=== PATIENT | female | born 1955 | race Caucasian/White ===

== ENCOUNTER → 2022-12-08 | Outpatient (CLI) | payer MEDICARE, SELFPAY ==
[2022-12-08 16:16] LABS: Absolute Lymphocyte Count 1.47 X10^3/uL (0.83-4.51); Absolute Neutrophil Count 4.4 X10^3/uL (2.0-7.7); Basophil# 0.03 X10^3/uL; Basophil% 0.5 % (0-1); Eosinophil# 0.15 X10^3/uL; Eosinophils% 2.3 % (0-5); Hematocrit 40.4 % (37-47); Hemoglobin 13.7 g/dL (12.0-15.0); Lymphocyte # 1.47 X10^3/ul (0.83-4.51); Lymphocyte % 22.9 % (19-41); Mean Corp Hgb Conc 33.9 g/dL (32-36); Mean Corpuscular Hgb 29.7 pg (27.0-32.0); Mean Corpuscular Volume 87.6 fL (81-99); Mean Platelet Vol. 9.8 fl (6.2-12.0); Monocyte# 0.41 X10^3/uL; Monocyte% 6.4 % (0-10); NRBC Flagged by Analyzer 0 % (0-5); Neutrophil # 4.35 X10^3/uL (2.7-7.7); Neutrophil % 67.6 % (47-70); Platelet Count 316 K/mm3 (150-450); RBC Distribution Width CV 13.3 % (11.6-14.6); RBC Distribution Width SD 42.5 fl (35.1-43.9); Red Blood Count 4.61 M/mm3 (4.2-5.4); White Blood Count 6.4 K/mm3 (4.4-11.0)
[2022-12-08 16:36] LABS: Hemoglobin A1c 5.5 % (3.8-5.6)
[2022-12-08 16:43] LABS: Progesterone Level 0.32 ng/mL (See Comment); Vitamin B12 1095 pg/mL (211-911); Vitamin D,25 Hydroxy 44.7 ng/mL
[2022-12-08 17:34] LABS: ALB/GLOB Ratio 1.2 RATIO (0.9-2.4); AST(SGOT) 20 U/L (15-37); Alanine Aminotransfer ALT/SGPT 27 U/L (13-56); Albumin, Serum 4.2 g/dL (3.2-5.0); Alkaline Phosphatase 59 U/L (45-117); Anion Gap 6 (5-15); BUN 17 mg/dL (7-18); BUN/Creat Ratio 18.6 RATIO (10-20); Calcium,Total 9.7 mg/dL (8.5-10.1); Chloride 103 mmol/L (98-107); Cholesterol 284 mg/dL (200); Creatinine, Serum 0.92 mg/dL (0.55-1.02); EST Glomerular Filtration Rate 65 mL/min (>60); Est Glom Filt Rate - Afr Amer 78 mL/min (>60); Estradiol 18.8 pg/mL; Globulin 3.5 g/dL (2.2-4.2); Glucose 83 mg/dL (74-106); High Density Lipoprotein 80 mg/dL; Magnesium 2.2 mg/dL (1.6-2.6); Potassium 4.4 mmol/L (3.5-5.1); Protein, Total 7.7 g/dL (6.4-8.2); Sodium Level 137 mmol/L (136-145); T4 Free Direct 0.93 ng/dL (0.76-1.46); Thyroid Stim Hormone (TSH) 1.83 uIU/mL (0.358-3.74); Triglycerides 283 mg/dL; Very Low Density Lipoprotein 57 mg/dL (5-40)
[2022-12-10 16:09] LABS: DHEA Sulfate 77.2 ug/dL (20.4-186.6); Thyroglobulin Antibody < 1.0 IU/mL (0.0-0.9); Thyroid Peroxidase AB < 9 IU/mL (0-34)
== END | disposition home or self-care (01) ==
LOC: LABSPEC 15:33
PROVIDERS: Referring Provider Nurse Practitioner Family; Visit Provider Nurse Practitioner Family
DX: R53.83 Other fatigue (principal); F32.A Depression, unspecified; M79.18 Myalgia, other site; E28.39 Other primary ovarian failure; R23.2 Flushing; G47.00 Insomnia, unspecified; R61 Generalized hyperhidrosis
CPT/HCPCS: 80053; 80061; 82306; 82607; 82627; 82670; 83036; 83735; 84144; 84403; 84439; 84443; 85025; 86376; 86695; 86696; 86800; 82626

== ENCOUNTER → 2023-09-20 | Outpatient (CLI) | payer MEDICARE, SELFPAY ==
[2023-09-20 15:21] LABS: Absolute Lymphocyte Count 1.81 X10^3/uL (0.83-4.51); Absolute Neutrophil Count 4.3 X10^3/uL (2.0-7.7); Basophil# 0.05 X10^3/uL; Basophil% 0.8 % (0-1); Eosinophil# 0.09 X10^3/uL; Eosinophils% 1.4 % (0-5); Hematocrit 41.7 % (37-47); Lymphocyte # 1.81 X10^3/ul (0.83-4.51); Lymphocyte % 27.5 % (19-41); Mean Corp Hgb Conc 33.6 g/dL (32-36); Mean Corpuscular Hgb 29.4 pg (27.0-32.0); Mean Corpuscular Volume 87.6 fL (81-99); Mean Platelet Vol. 9.2 fl (6.2-12.0); Monocyte# 0.35 X10^3/uL; Monocyte% 5.3 % (0-10); NRBC Flagged by Analyzer 0 % (0-5); Neutrophil # 4.27 X10^3/uL (2.7-7.7); Neutrophil % 64.7 % (47-70); Platelet Count 358 K/mm3 (150-450); RBC Distribution Width CV 13.2 % (11.6-14.6); RBC Distribution Width SD 42.6 fl (35.1-43.9); Red Blood Count 4.76 M/mm3 (4.2-5.4); White Blood Count 6.6 K/mm3 (4.4-11.0)
[2023-09-20 16:20] LABS: ALB/GLOB Ratio 1.1 RATIO (0.9-2.4); AST(SGOT) 21 U/L (15-37); Alanine Aminotransfer ALT/SGPT 23 U/L (13-56); Albumin, Serum 3.9 g/dL (3.2-5.0); Alkaline Phosphatase 58 U/L (45-117); Anion Gap 7 (5-15); BUN 19 mg/dL (7-18); BUN/Creat Ratio 20.4 RATIO (10-20); Calcium,Total 9.6 mg/dL (8.5-10.1); Chloride 105 mmol/L (98-107); Cholesterol 260 mg/dL (200); Creatinine, Serum 0.93 mg/dL (0.55-1.02); EST Glomerular Filtration Rate 63 mL/min (>60); Est Glom Filt Rate - Afr Amer 77 mL/min (>60); Globulin 3.6 g/dL (2.2-4.2); Glucose 120 mg/dL (74-106); High Density Lipoprotein 81 mg/dL; Magnesium 2.1 mg/dL (1.6-2.6); Protein, Total 7.5 g/dL (6.4-8.2); Sodium Level 137 mmol/L (136-145); Triglycerides 178 mg/dL; Very Low Density Lipoprotein 36 mg/dL (5-40)
[2023-09-20 16:35] LABS: Vitamin D,25 Hydroxy 63.1 ng/mL
[2023-09-20 17:54] LABS: Hemoglobin A1c 5.2 % (3.8-5.6)
[2023-09-22 06:10] LABS: HSV 2 IgG 4.19 index (0.00-0.90)
== END | disposition home or self-care (01) ==
PROVIDERS: Visit Provider Nurse Practitioner Family
DX: R53.82 Chronic fatigue, unspecified (principal); F32.A Depression, unspecified; M79.18 Myalgia, other site; E28.39 Other primary ovarian failure; G47.00 Insomnia, unspecified; R61 Generalized hyperhidrosis; R23.2 Flushing
CPT/HCPCS: 36415; 80053; 80061; 82306; 83036; 83735; 85025; 86695; 86696

== ENCOUNTER 2023-10-03 13:51 | Emergency (ER) | payer MEDICARE, SELFPAY ==
[2023-10-03 13:52] VITALS: BP 168/122; PULSE 89; RESP 18; TEMP 36.4; O2SAT 99; BMI 24.1
--- NOTE | 2023-10-03 14:46 | EKG12_ITS ---
Test Reason : HTN Blood Pressure : / mmHG Vent. Rate : 078 BPM Atrial Rate : 078 BPM P-R Int : 154 ms QRS Dur : 084 ms QT Int : 366 ms P-R-T Axes : 032 -11 -24 degrees QTc Int : 417 ms Normal sinus rhythm Possible Left atrial enlargement Minimal voltage criteria for LVH, may be normal variant ( R in aVL ) Non-specific ST & T wave changes Abnormal ECG Confirmed by Chase Young ([id number]), editor greeting card BERNADETTE PANIAGUA ([id number]) on 10/04/2023 10:02:30 AM Referred By: Confirmed By:Chase Young
--- NOTE | 2023-10-03 14:46 | CT_ITS ---
INDICATION: headaches, HTN EXAMINATION: CT BRAIN - CT Head or Brain W/O Contrast Injection TECHNIQUE: Multiple axial images were obtained of the head without intravenous contrast. A radiation dose optimization technique was used for this scan. IV Contrast dosage and agent: None. COMPARISON: None. FINDINGS: BRAIN PARENCHYMA: No intra- or extra-axial hemorrhage. No evidence of acute infarct. No intracranial mass or mass effect. Mild volume loss with low attenuation of the periventricular white matter typical of chronic small vessel disease. Posterior fossa structures are unremarkable. CSF SPACES: Appropriate for age. No hydrocephalus. Basal cisterns are patent. CALVARIUM, SKULL BASE, PARANASAL SINUSES AND MASTOID AIR CELLS: Clear. No discrete lytic or blastic abnormalities. ORBITS: Both globes, extraocular muscles, optic nerves and retrobulbar fat appear unremarkable. CT/Brain/Head without Contrast IMPRESSION: Mild senescent change. No acute intracranial findings. Electronically Signed: Jalen Hernández MD at 16:30 EDT ,
--- NOTE | 2023-10-03 14:50 | EDS_ITS ---
HPI History of Present Illness Chief Complaint: Hypertension Informant: patient Narrative Narrative: Patient presents due to concern for hypertension. She is been checking her blood pressures at home over the last 3 to 4 days and noted them to be elevated. She does not have a known history of hypertension. Last time it was checked at a doctor's office was early July and at that time her systolic pressure was 118. She does note that she has been having frequent headaches for the past couple of months. She went to urgent care today and was sent to the emergency room. She does not have a primary care physician at this time. PFSH PFSH Home Medications amlodipine 5 mg tablet (Norvasc) 5 mg PO DAILY #30 tabs 10/03/23 [Rx Last Taken Unknown] Allergy/AdvReac Type Severity Reaction Status Date / Time azithromycin [From Zithromax] Allergy Mild Nausea Verified 10/03/23 13:55 cephalexin Allergy Mild Nausea/Vom/ Verified 10/03/23 13:55 Diarrhea Social History Smoking Status: Never smoker ROS ROS ED Constitutional Constitutional ED: Denies chills or fever(s) Eyes Eyes: Denies change in vision or discharge from eye(s) ENT ENT ED: Denies discharge from eye(s), rhinorrhea or sore throat Cardiovascular Cardiovascular: Denies chest pain or palpitations Respiratory/Chest Respiratory/Chest: Denies cough or dyspnea Gastrointestinal Gastrointestinal: Denies abdominal pain, nausea or vomiting Genitourinary Genitourinary ED: Denies dysuria Musculoskeletal Musculoskeletal: Denies back pain or extremity pain Integumentary Denies Abrasions or rash Neurologic Neurologic: Reports headache(s); Denies weakness Psychiatric Psychiatric: Denies anxiety or depression Allergic/Immunologic Allergic/Immunologic ED: Denies lip swelling or urticaria EXAM Physical Exam Const Vital Signs: 10/03/23 13:52 10/03/23 15:08 10/03/23 15:52 Temperature 97.6 F L Temperature Source Temporal Pulse Rate 89 73 Respiratory Rate 18 18 Respiratory Effort Normal Respiratory Pattern Normal Blood Pressure 168/122 H 178/113 H Blood Pressure Mean 137 134 Pulse Ox 99 99 Oxygen Delivery Method Room Air Room Air 10/03/23 16:58 Temperature Temperature Source Pulse Rate 72 Respiratory Rate 11 L Respiratory Effort Respiratory Pattern Blood Pressure 154/103 H Blood Pressure Mean 120 Pulse Ox 98 Oxygen Delivery Method Room Air Positive well nourished and well developed General Appearance ED: well developed HEENT Reports moist mucous membranes Eyes EOMs intact bilaterally Chest Wall inspection of chest normal and palpation of chest normal Resp normal respiratory effort and clear to auscultation bilaterally Cardio regular rate and regular rhythm GI non-tender Palpation: soft Extremity normal to inspection Neuro oriented x3 and no sensory deficits noted Psych mental status grossly normal Skin no rashes or lesions noted MDM MDM MDM Narrative Medical decision making narrative: 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 IV line initiated. Labwork obtained to evaluate for leukocytosis, anemia, and electrolyte derangement. Urinalysis obtained to evaluate for infection/hematuria. Given her frequency of headaches and hypertension CT scan of the head will be obtained to evaluate for any intracranial abnormality including bleed. Two-view chest x-ray will be obtained to evaluate cardiac size. History & Record Review Discussion w/independent historian: Patient Additional record(s) reviewed:: Prior labs Lab Data Attestation: I reviewed the patient's lab results. Labs: Laboratory Results - last 24 hr 10/03/23 10/03/23 15:00 15:52 WBC 7.0 RBC 5.04 Hgb 14.8 Hct 43.9 MCV 87.1 MCH 29.4 MCHC 33.7 RDW Std Deviation 41.5 RDW Coeff of Mary 13.0 Plt Count 360 MPV 8.9 Immature Gran % (Auto) 0.300 Neut % (Auto) 70.3 H Lymph % (Auto) 22.8 [place] % (Auto) 5.3 Eos % (Auto) 0.9 Baso % (Auto) 0.4 Absolute Neuts (auto) 4.9 Absolute Lymphs (auto) 1.60 Nucleated RBC % 0 Sodium 138 Potassium 4.1 Chloride 102 Carbon Dioxide 30.0 Anion Gap 6 BUN 14 Creatinine 0.81 Estim Creat Clear Calc 58.98 Est GFR (MDRD) Af Amer 90 Est GFR (MDRD) Non-Af 74 BUN/Creatinine Ratio 17.2 Glucose 86 Calcium 10.3 H Urine Color Yellow Urine Clarity Clear Urine pH 7.0 Ur Specific [place] 1.010 Urine Protein Negative Urine Glucose (UA) Normal Urine Ketones Negative Urine Occult Blood Negative Urine Nitrite Negative Urine Bilirubin Negative Urine Urobilinogen Normal Ur Leukocyte Esterase 25 H Urine RBC 0 SEEN Urine WBC 0 SEEN Ur Squamous Epith Cells 0 SEEN Urine Bacteria 0 SEEN Urine Mucus 0 SEEN Radiography Chest X-Ray - ED: 2 View, Read by ED Physician, Normal, Heart, Lungs and Mediastinum Diagnostic Testing: Clinical Impression(s) from Imaging Studies Brain CT 10/03/23 14:46 IMPRESSION: Mild senescent change. No acute intracranial findings. Electronically Signed: Jalen Hernández MD at 16:30 EDT , Chest X-Ray 10/03/23 15:20 IMPRESSION: No radiographic evidence of acute cardiopulmonary disease. Electronically Signed: Jalen Hernández MD at 16:33 EDT , EKG Initial EKG: Attestation: I personally reviewed and interpreted this EKG as follows: Interpretation: Sinus Rhythm (Sinus at 78 with no acute ischemia. Nonspecific 1/[address] depression in the lateral precordial leads.) Treatment and Re-Evaluation :: CBC was a white count of 7 with a hemoglobin of 14.8. Normal differential. Chemistry studies unremarkable with normal renal function. Glucose is 86. Calcium is slightly high at 10.3. Urinalysis reveals no protein and no evidence of infection. EKG is sinus rhythm with no evidence of LVH. 2 view chest x-ray per my interpretation is unremarkable with normal cardiac silhouette. Radiology interpretation reviewed and agrees. CT scan of the head reveals no acute findings. Patient's blood pressure remained elevated while we were observing her. She was given a dose of 10 mg of labetalol. Pressure came down to 154/103, but final reexam systolic pressure is back up to 162. I discussed with the patient star ting her on daily Norvasc for blood pressure control. She will check her blood pressure each morning and if her systolic pressure is greater than 160 she is to take her medication. I asked her to keep a detailed journal of her blood pressure readings, when she takes her medication, and her symptoms. She would like to establish care with Dr. Scott Toscano at [facility]. Patient be given return instructions. Discharge Plan Triage Chief Complaint: Hypertension ED Provider: Marilia Stratton Dx/Rx/DC Orders Clinical Impression: Hypertension Instructions: ED Hypertension New Begin Treatment Prescriptions: New amlodipine [Norvasc] 5 mg tablet 5 mg PO DAILY Qty: 30 0RF Primary Care Provider: Pooja Pineda NP Referrals: Josias Toscano DO [Med Staff - Dental Surgeon] - As soon as possible Pooja Pineda [employer], [employer] [Primary Care Provider] - Disposition Disposition: Home, Self Care
[2023-10-03 15:11] LABS: Absolute Neutrophil Count 4.9 X10^3/uL (2.0-7.7); Basophil# 0.03 X10^3/uL; Basophil% 0.4 % (0-1); Eosinophil# 0.06 X10^3/uL; Eosinophils% 0.9 % (0-5); Hematocrit 43.9 % (37-47); Hemoglobin 14.8 g/dL (12.0-15.0); Lymphocyte % 22.8 % (19-41); Mean Corp Hgb Conc 33.7 g/dL (32-36); Mean Corpuscular Hgb 29.4 pg (27.0-32.0); Mean Corpuscular Volume 87.1 fL (81-99); Mean Platelet Vol. 8.9 fl (6.2-12.0); Monocyte# 0.37 X10^3/uL; Monocyte% 5.3 % (0-10); NRBC Flagged by Analyzer 0 % (0-5); Neutrophil # 4.94 X10^3/uL (2.7-7.7); Neutrophil % 70.3 % (47-70); Platelet Count 360 K/mm3 (150-450); RBC Distribution Width SD 41.5 fl (35.1-43.9); Red Blood Count 5.04 M/mm3 (4.2-5.4)
--- NOTE | 2023-10-03 15:20 | RAD_ITS ---
INDICATION: htn, cp EXAMINATION/TECHNIQUE: X-RAY - XR Chest 2 Views COMPARISON: None. FINDINGS: LINES/DEVICES: None. LUNGS: No consolidation, edema or effusion. No pneumothorax. MEDIASTINUM AND CARDIOVASCULAR STRUCTURES: Cardiac silhouette not enlarged. Central airways and mediastinal contour are unremarkable. BONES AND SOFT TISSUES: Unremarkable. RAD/Chest PA and Lateral IMPRESSION: No radiographic evidence of acute cardiopulmonary disease. Electronically Signed: Jalen Hernández MD at 16:33 EDT ,
[2023-10-03 15:51] LABS: Anion Gap 6 (5-15); BUN 14 mg/dL (7-18); BUN/Creat Ratio 17.2 RATIO (10-20); Calcium,Total 10.3 mg/dL (8.5-10.1); Chloride 102 mmol/L (98-107); Creatinine, Serum 0.81 mg/dL (0.55-1.02); EST Glomerular Filtration Rate 74 mL/min (>60); Est Glom Filt Rate - Afr Amer 90 mL/min (>60); Estimated Creatinine Clearance 58.98 ml/min; Glucose 86 mg/dL (74-106); Potassium 4.1 mmol/L (3.5-5.1); Sodium Level 138 mmol/L (136-145)
[2023-10-03 15:52] VITALS: BP 178/113; PULSE 73; RESP 18; O2SAT 99
[2023-10-03 15:57] LABS: Bacteria 0 SEEN /hpf (None Seen); Mucous, Urine 0 SEEN /hpf (<or=2+); Red Blood Cells-Urine 0 SEEN /hpf (0-5); Squamous Epithelial Cells - UA 0 SEEN /hpf (5-10); White Blood Cells 0 SEEN /hpf (0-5)
[2023-10-03] MEDS: Labetalol (Prefilled) 20 MG/4 ML 10 MG IV (16:06)
[2023-10-03 16:10] LABS: Color, Urine Yellow (Yellow); Glucose, Dipstick Normal (Normal); Ketone-Dipstick Negative (Negative); Leukocyte Esterase-Dipstick 25 /ul (Negative); Nitrite-Dipstick Negative (Negative); Occult Blood-Urine Negative /ul (Negative); Protein-Dipstick Negative (Negative); Urine Bilirubin Dipstick Negative (Negative); Urine Clarity Clear (Clear); Urine Urobilinogen Normal (Normal)
[2023-10-03 16:58] VITALS: BP 154/103; PULSE 72; RESP 11; O2SAT 98
[2023-10-03 17:36] VITALS: BP 158/100; PULSE 72; RESP 16; TEMP 36.8; O2SAT 100
[2023-10-03] MEDS: amLODIPine 5 MG Tablet PO (17:36)
== END 2023-10-03 17:40 | disposition home or self-care (01) ==
PROVIDERS: Emergency Provider Emergency Medicine; PCP Nurse Practitioner Family; Visit Provider Emergency Medicine
DX: I10 Essential (primary) hypertension (principal)
CPT/HCPCS: 70450; 71046; 80048; 81001; 85025; 93005; 96374; 99284; A4216

== ENCOUNTER → 2023-10-06 | Outpatient (CLI) | payer MEDICARE, SELFPAY ==
[2023-10-06 15:45] LABS: Thyroid Stim Hormone (TSH) 1.76 uIU/mL (0.358-3.74)
[2023-10-06 16:39] LABS: PTHIN 49.8 pg/mL (18.4-80.1)
== END | disposition home or self-care (01) ==
LOC: BIMLAB 12:00
PROVIDERS: PCP Family Medicine; Referring Provider Physician Assistant; Visit Provider Physician Assistant
DX: I10 Essential (primary) hypertension (principal)
CPT/HCPCS: 36415; 83970; 84443

== ENCOUNTER → 2024-03-02 | Outpatient (CLI) | payer MEDICARE, SELFPAY ==
--- NOTE | 2024-03-02 08:29 | RAD_ITS ---
STUDY: X-RAY - ESOPHAGUS (BARIUM SWALLOW) WITH FLUOROSCOPY REASON FOR EXAM: Female, 68 years old. Hiatal hernia TECHNIQUE: 8 view(s) of the esophagus were obtained following swallowing of barium. FLUOROSCOPY TIME (if supplied): (44 seconds) minutes/seconds. 6.85 mGy. COMPARISON: None. FINDINGS: There is no demonstrated esophageal foreign body. There is no demonstrated stricture or mucosal abnormality. Normal gastroesophageal junction, without a demonstrated hiatal hernia. The patient ingested a 12 mm tablet of barium without any difficulty. Normal visualized aortic arch and descending thoracic aorta. Normal visualized pulmonary parenchyma. Normal visualized osseous structures of the thorax. RAD/Esophagus Dual Contrast IMPRESSION: Normal plain film x-ray examination (barium swallow) of the esophagus. Electronically Signed: Rodrigo Sheriff MD at 13:32 EDT ,
== END | disposition home or self-care (01) ==
LOC: RAD 08:21
PROVIDERS: PCP Family Medicine; Referring Provider Family Medicine; Visit Provider Family Medicine
DX: K44.9 Diaphragmatic hernia without obstruction or gangrene (principal)
CPT/HCPCS: 74221

== ENCOUNTER 2024-08-23 11:30 | Outpatient (RCR) | payer MEDICARE, SELFPAY ==
--- NOTE | 2024-08-09 13:41 | HP.PTEVAL ---
Patient's Visit Information Visit Information Visit Information: CARLOS MONAE is a 69 year old F referred to Physical Therapy by Dr. Josias Toscano DO with a diagnosis of R RC tear/rupture. Date of Evaluation: 08/09/24 Physical Therapist: FARZANA Flower Visit Plan Frequency: 2x /Week Duration: 2 Months Plan: Pt does have a +Empty can test for pain and weakness on the R. 2X/ week for 8 weeks for R shoulder PROM (end range), AROM, SCAPULAR strength/postural exercises, RC strength (andrea ER), bicep strength with HEP HEP: supine wand flexion, Double ER with yellow band, mid rows with green band Subjective Subjective: Pt has a lot of pain in the R shoulder. She can have lateral, axilla, or shoulder blade pain. If she has to lift a pitcher it will hurt the front of her shoulder or if she reaches behind her to necktie turner a light. She fell in Dec on her hands and knees. It did not start to hurt until May. Pain is a little better after Chiro appts. Currently she has no pain...just feels tightness. All of the sudden her pain will kick in when she does not expect it. Her neck is stiff. He did not do an MRI or X-ray. said it was her supraspinatus muscle. She is R handed. She sleeps on her L side. She can not sleep on her R side Pain R shoulder: Pain Intensity (Out of 10): 1 Pain Intensity Range: 5 Objective Objective: R handed: High Speed Warper Tender strength R 60 and L 66 Shoulder AROM: R shoulder flex 156 and L 162 R shoulder ABD 165 (pain) and L 165 R shoulder ER 90 degrees B R shoulder IR T6 Full elbow flexion and extension B Shoulder MMT R shoulder flex 11.2 and L 10.7 R shoulder ABD 8.8 and L 12.4 R shoulder ER 10.2 and L 14 R shoulder IR 9.5 and L 11.2 R bicep 13.4 and L 18.5 Pain at end range flexion with PROM Some pain with impingement test +Empty can for pain and weakness on the R side. Balance/Special Test Scores Quick DASH Score: 50.0000 Goals Goal 1:: I HEP Goal Time Frame: 6-8 Weeks Goal 2:: Be able to lift a pitcher without having R bicep/shoulder pain and weakness Goal Time Frame: 6-8 Weeks Goal 3:: Increase R shoulder AROM at end range with no pain (At the time of the eval: R shoulder flex 156 and L 162) Goal Time Frame: 6-8 Weeks Goal 4:: Increase R shoulder strength (at the time of the eval: Shoulder MMT R shoulder flex 11.2 and L 10.7 R shoulder ABD 8.8 and L 12.4 R shoulder ER 10.2 and L 14 R shoulder IR 9.5 and L 11.2 R bicep 13.4 and L 18.5) Goal Time Frame: 6-8 Weeks Goal 5:: Be able to reach out and necktie turner the light without having shoulder pain Goal Time Frame: 6-8 Weeks Rehabilitation Potential Rehabilitation Potential: Good Anticipated Interventions Patient/Client Instruction: Educate patient on: Condition and Plan of Care For the Purpose of:: To decrease pain, To increase ROM, To improve nutrient delivery to tissue, To improve muscle performance and motor function, To improve ability to perform ADL's, To increase tolerance to activity/condition/position, To improve performance and independence with ADL's, To decrease level of supervision to perform tasks, To improve ability of physical actions for home/community/work/leisure, To improve health of tissue, To decrease soft tissue restriction and To increase flexibility/ROM Therapeutic Exercise to Include: Strength training, Postural training, Flexibilty training, Passive ROM, Active ROM and Scapular Strength/Stabilization For the Purpose of:: To decrease pain, To increase ROM, To improve nutrient delivery to tissue, To improve muscle performance and motor function, To improve ability to perform ADL's, To increase tolerance to activity/condition/position, To improve performance and independence with ADL's, To decrease level of supervision to perform tasks, To improve ability of physical actions for home/community/work/leisure, To improve health of tissue, To decrease soft tissue restriction and To increase flexibility/ROM Manual Therapy Techniques to Include: Passive ROM For the Purpose of:: To increase ROM Cryotherapy (ice pack, ice massage): Yes Thermo therapy (hot pack): Yes Ultrasound (thermal/non thermal): Yes For the Purpose of:: To decrease pain, To decrease swelling/inflammation, To increase ROM and To improve nutrient delivery to tissue Text: Thank you for the opportunity to evaluate your patient. For Medicare and Medicare HMO plans, please review the plan of care and approve it. It will need to be FAXED BACK to us at [phone] for Medicare purposes. For Medicare only, by signing this I certify the plan of care. Please let me know if there are questions or concerns regarding this plan of care. Physician Signature: Date:
--- NOTE | 2024-11-20 10:30 | HP.PT.NRP ---
Patient Information Patient Information: CARLOS MONAE was seen in my office for initial evaluation on 08/09/24. The following Plan of Care was established for this patient: POC Established Initial Frequency: 2x /Week Initial Duration: 2 Months Anticipated Interventions Patient/Client Instruction: Educate patient on: Condition and Plan of Care For the Purpose of:: To decrease pain, To increase ROM, To improve nutrient delivery to tissue, To improve muscle performance and motor function, To improve ability to perform ADL's, To increase tolerance to activity/condition/position, To improve performance and independence with ADL's, To decrease level of supervision to perform tasks, To improve ability of physical actions for home/community/work/leisure, To improve health of tissue, To decrease soft tissue restriction and To increase flexibility/ROM Therapeutic Exercise to Include: Strength training, Postural training, Flexibilty training, Passive ROM, Active ROM and Scapular Strength/Stabilization For the Purpose of:: To decrease pain, To increase ROM, To improve nutrient delivery to tissue, To improve muscle performance and motor function, To improve ability to perform ADL's, To increase tolerance to activity/condition/position, To improve performance and independence with ADL's, To decrease level of supervision to perform tasks, To improve ability of physical actions for home/community/work/leisure, To improve health of tissue, To decrease soft tissue restriction and To increase flexibility/ROM Manual Therapy Techniques to Include: Passive ROM For the Purpose of:: To increase ROM Cryotherapy (ice pack, ice massage): Yes Thermo therapy (hot pack): Yes Ultrasound (thermal/non thermal): Yes For the Purpose of:: To decrease pain, To decrease swelling/inflammation, To increase ROM and To improve nutrient delivery to tissue Last Seen Last Seen: This patient was last seen in our office 08/23/24. Pertinent comments regarding their Physical therapy will appear below: DC PT At this point I will be discontinuing this patient from physical therapy. I would be happy to see this patient again in the future if found appropriate by the physician. Thank you! Vanessa Buenrostro, FARZANA Balance/Gait/Functional tests Balance/Special Test Scores Quick DASH Score: 50.0000
== END 2024-08-23 19:00 | disposition home or self-care (01) ==
LOC: PT 11:30
PROVIDERS: PCP Family Medicine; Referring Provider Family Medicine; Visit Provider Family Medicine
DX: M75.101 Unspecified rotator cuff tear or rupture of right shoulder, not specified as traumatic (principal)
CPT/HCPCS: 97110; 97161

== ENCOUNTER → 2025-03-19 | Outpatient (CLI) | payer MEDICARE, SELFPAY ==
[2025-03-19 18:12] LABS: Hematocrit 40.3 % (37-47); Hemoglobin 13.5 g/dL (12.0-15.0); Immature Granulocytes Count 0.020 X10^3/uL (0.0-0.0); Mean Corp Hgb Conc 33.5 g/dL (32-36); Mean Corpuscular Volume 85.7 fL (81-99); Mean Platelet Vol. 9.7 fl (6.2-12.0); NRBC Flagged by Analyzer 0 % (0-5); Platelet Count 415 K/mm3 (150-450); RBC Distribution Width CV 13.1 % (11.6-14.6); RBC Distribution Width SD 41.1 fl (35.1-43.9); Red Blood Count 4.70 M/mm3 (4.2-5.4); White Blood Count 7.7 K/mm3 (4.4-11.0)
[2025-03-19 18:18] LABS: Color, Urine Yellow (Yellow); Glucose, Dipstick Normal (Normal); Ketone-Dipstick Negative (Negative); Leukocyte Esterase-Dipstick 25 /ul (Negative); Nitrite-Dipstick Negative (Negative); Occult Blood-Urine Negative /ul (Negative); Protein-Dipstick 15 mg/dl (Negative); Specific Gravity, Urine 1.015 (1.002-1.030); Urine Bilirubin Dipstick Negative (Negative)
[2025-03-19 18:43] LABS: AST(SGOT) 26 U/L (<=31); Alanine Aminotransfer ALT/SGPT 24 U/L (<=34); Albumin, Serum 4.5 g/dL (3.4-4.8); Alkaline Phosphatase 62 U/L (35-104); Anion Gap 11 (5-15); BUN 16 mg/dL (4-19); BUN/Creat Ratio 18.1 RATIO (10-20); Calcium,Total 9.6 mg/dL (7.6-11.0); Carbon Dioxide 26.3 mmol/L (21.0-32.0); Chloride 99 mmol/L (98-108); Globulin 2.6 g/dL (2.2-4.2); Glucose 119 mg/dL (70-99); Potassium 4.4 mmol/L (3.3-5.1)
[2025-03-19 18:48] LABS: Mucous, Urine 1+ /hpf (<or=2+); Red Blood Cells-Urine 0-5 SEEN /hpf (0-5); Squamous Epithelial Cells - UA 0-5 SEEN /hpf (5-10)
== END | disposition home or self-care (01) ==
LOC: MTLAB 15:22
PROVIDERS: PCP Family Medicine; Referring Provider Nurse Practitioner Family; Visit Provider Nurse Practitioner Family
DX: I10 Essential (primary) hypertension (principal); R53.83 Other fatigue; Z71.1 Person with feared health complaint in whom no diagnosis is made
CPT/HCPCS: 36415; 80053; 81001; 84443; 85025